=== PATIENT | female | born 1990 | race Caucasian/White ===

== ENCOUNTER → 2018-04-09 | Outpatient (CLI) | payer OTHER ==
--- NOTE | 2018-04-09 14:00 | WOMENS IMAGING REPORT ---
EXAM DESCRIPTION: TRANSVAGINAL ULTRASOUND COMPLETED DATE/TIME: 04/09/2018 12:58 pm REASON FOR STUDY: PELVIC PAIN R10.2 PELVIC AND PERINEAL PAIN LMP 04/02/2018 COMPARISON: None. TECHNIQUE: Dynamic and static grayscale images acquired of the pelvis via transvaginal approach and recorded on PACS. Additional selected color Doppler and spectral images recorded. LIMITATIONS: None. FINDINGS: UTERUS: Contour normal. No mass. ENDOMETRIAL STRIPE: No focal or generalized thickening. No masses. CERVIX: No nabothian cysts. RIGHT OVARY AND DOPPLER: Normal size. No worrisome masses. Normal arterial vascular flow without evid ence for torsion. LEFT OVARY AND DOPPLER: Normal size. No worrisome masses. Normal arterial vascular flow without evide nce for torsion. FREE FLUID: There is small amount of free fluid in the posterior cul-de-sac. OTHER: No other significant finding. MEASUREMENTS: UTERUS: 7.7 x 2.2 x 3.2 cm. ENDOMETRIAL STRIPE: 3.4 mm. RIGHT OVARY: 2.2 x 1.6 x 2 cm. LEFT OVARY: 2.6 x 1.4 x 2.1 cm. IMPRESSION: NORMAL TRANSVAGINAL PELVIC ULTRASOUND. TECHNICAL DOCUMENTATION: JOB ID: [id number] [employer]- All Rights Reserved Rev-11/09 Reading location - IP/workstation name: [email or web address]
== END ==
LOC: WI 11:02
PROVIDERS: ATTEND Nurse Practitioner Family
DX: R10.2 Pelvic and perineal pain (principal)
CPT/HCPCS: 76830

== ENCOUNTER 2018-06-06 06:56 | Day surgery (SDC) | payer OTHER ==
[2018-06-04 12:30] LABS: HEMOGLOBIN 13.3 g/dL (12.0-15.5); MEAN CORPUSCULAR HEMOGLOBIN 29.1 pg (27.0-33.4); MEAN CORPUSCULAR VOLUME 86 fl (80-97); PLATELET COUNT 244 10^3/uL (150-450); RED BLOOD COUNT 4.56 10^6/uL (3.72-5.28); RED CELL DISTRIBUTION WIDTH 13.1 % (11.5-14.0); WHITE BLOOD COUNT 5.1 10^3/uL (4.0-10.5)
[2018-06-04 12:56] LABS: APPEARANCE,URINE CLEAR; BILIRUBIN,URINE NEGATIVE (NEGATIVE); COLOR,URINE STRAW; GLUCOSE, URINE NEGATIVE (NEGATIVE); KETONES,URINE NEGATIVE (NEGATIVE); LEUKOCYTE ESTERASE,URINE NEGATIVE (NEGATIVE); NITRITE,URINE NEGATIVE (NEGATIVE); PROTEIN,URINE NEGATIVE (NEGATIVE); URINE SPECIFIC GRAVITY 1.004; UROBILINOGEN,URINE NEGATIVE mg/dL (<2.0)
[~2018-06-06 06:56] MED LIST: BUPIVACAINE HCL 0.5 % INJ/PF 30 ML SDV ONE; FENTANYL CITRATE INJ/PF 100 MCG/2 ML AMPUL ONE; LACTATED RINGERS 1000 ML IV PRN; LIDOCAINE 0.5% INJ-PF (5 MG/ML) 50 ML SDV SUBCUT PRN; MIDAZOLAM 2 MG/2 ML INJ ONE; PROPOFOL INJ 200 MG/20 ML VIAL IV ONE
[2018-06-06] MEDS ORDERED: CEFAZOLIN INJ 1 GM VIAL ONE (08:45)
[2018-06-06] MEDS ORDERED: FENTANYL CITRATE INJ/PF 100 MCG/2 ML AMPUL IV PRN ×3 (09:10)
[2018-06-06] MEDS ORDERED: DIPHENHYDRAMINE HCL 50 MG/ML VIAL IV PRN (09:10)
[2018-06-06] MEDS ORDERED: MEPERIDINE HCL/PF INJ 25 MG/1 ML DISP.SYRIN IV PRN (09:10)
[2018-06-06] MEDS ORDERED: PROMETHAZINE HCL INJ 25 MG/1 ML VIAL IV PRN (09:10)
[2018-06-06] MEDS ORDERED: ACETAMINOPHEN 1,000 MG/100 ML RTUPB IV ONE (09:49)
[2018-06-06] MEDS ORDERED: IBUPROFEN 800 MG TABLET PO PRN (09:59)
[2018-06-06] MEDS ORDERED: MORPHINE SULFATE 10 MG/ML INJ IM PRN (10:02)
[2018-06-06] MEDS ORDERED: OXYCODONE-ACETAMINOPHEN 5-325 MG TABLET PO PRN ×2 (10:02→10:03)
[2018-06-06] MEDS ORDERED: OXYCODONE-ACETAMINOPHEN 5-325 MG TABLET ONE (10:19)
[2018-06-06] MEDS ORDERED: SUCCINYLCHOLINE CHLORIDE INJ 200 MG/10 ML VIAL ONE (14:01)
[2018-06-06] MEDS ORDERED: KETOROLAC TROMETHAMINE 60 MG/2 ML SDV ONE (14:01)
[2018-06-06] MEDS ORDERED: DEXAMETHASONE SOD PHOSPHATE INJ 4 MG/1 ML VIAL ONE (14:01)
[2018-06-06] MEDS ORDERED: ONDANSETRON HCL INJ/PF 4 MG/2 ML SDV ONE (14:01)
[2018-06-06] MEDS ORDERED: LIDOCAINE 2% INJ-PF (20 MG/ML) 2 ML AMPUL ONE (14:01)
[2018-06-06 15:49] VITALS: BP 109/63
--- NOTE | 2018-07-17 23:12 | OPERATIVE REPORT E ---
Operative Report NAME: LILIANA KHAN : 1990 AGE: 27Y DATE OF SURGERY: 06/06/2018 ROOM: PREOPERATIVE DIAGNOSES: 1. CHRONIC PELVIC PAIN. 2. ABNORMAL UTERINE BLEEDING. POSTOPERATIVE DIAGNOSES: 1. CHRONIC PELVIC PAIN. 2. ABNORMAL UTERINE BLEEDING. 3. CERVICAL STENOSIS. SURGEON: JOSIAS HINES M.D. ANESTHESIA PROVIDERS: Lan Masters M.D. and Joyce Freed CRNA. ANESTHESIA: General. FINDINGS: Uterus sounded to approximately 8 cm. Normal endometrial lining. No polyps noted. With laparoscopy no lesions were noted, no signs of adhesions or endometriosis noted. Appendix was normal. Liver and gallbladder were also noted to be normal. COMPLICATIONS: None. ESTIMATED BLOOD LOSS: 20 mL. SPECIMENS REMOVED: Endometrial curettings. PROCEDURE: Diagnostic hysteroscopy with dilation and curettage and the diagnostic laparoscopy. PROCEDURE IN DETAIL: The patient was taken to the operating room, prepared and draped in the normal sterile fashion in the dorsal lithotomy position under the sterile conditions an in and out cath was performed of approximately 20 mL of clear urine. A sterile speculum was placed into the vagina. The cervix was prepped with Betadine and grasped on the anterior aspect with a single tooth tenaculum. The uterine sound was then introduced and it was measured to approximately 8 cm. The cervix was then dilated to accommodate a 5 mm hysteroscope which was then inserted with the above findings noted. The hysteroscope was then removed and a gentle scraping was done with a Kevorkian curette for sampling. The hysteroscope was reintroduced and again no pathologic findings noted. This portion of the case was then concluded. Gloves were changed and attention was turned to the upper portion of the case were an umbilical skin incision was made to accommodate a 5 mm trocar. A Veress needle was introduced into the abdomen and peritoneal cavity. Placement was confirmed with free low sterile water into the peritoneum, into the needle. The abdomen was then inflated with approximately 2 liters of CO2 gas and an introductory pressure was less than 4 mmHg. Then approximately 2 liters of CO2 gas was used to inflate the abdomen and the Veress needle was then removed and the 5 mm trocar was placed without difficulty. The camera was introduced. The patient was placed in a steep Trendelenburg. Under direct visualization another 5 mm trocar was placed in the left lower quadrant. The bowel was swept away with a blunt probe through this port and the abdomen was carefully inspected. There was no evidence of peritoneal adhesions and there was no evidence of endometriosis noted. The fallopian tubes were both followed the fimbriated end and found to be normal. The appendix was also located and found to be normal in appearance. The upper abdomen was inspected and again found to be normal. This portion of the case was then concluded. The lower trocar was removed under direct visualization with hemostasis noted. The camera was then removed and the abdomen deflated through the umbilical trocar and this was removed as well. The incisions were then both sewn at the skin with 4-0 Vicryl. The patient tolerated the procedure well. Sponge, lap, and needle counts were correct x2. The patient was taken to recovery in stable condition. DICTATING PHYSICIAN: JOSIAS HINES M.D. [id number] PHY#: [id number] ID: [id number] JOB#: [id number] ACCT: [id number] cc:JOSIAS HINES M.D. >
== END 2018-06-06 11:20 | disposition home or self-care (01) ==
LOC: OROUT 06:56
PROVIDERS: ATTEND Obstetrics & Gynecology
DX: G89.29 Other chronic pain (principal); R10.2 Pelvic and perineal pain; N88.2 Stricture and stenosis of cervix uteri; N93.9 Abnormal uterine and vaginal bleeding, unspecified; Z79.899 Other long term (current) drug therapy; Z88.5 Allergy status to narcotic agent
CPT/HCPCS: 36415; 85027; 81005; 81025; 88162; 88305 ×2; 49320; 58558; J2250; J3490 ×2; J0690; J1100; J1885; J3010; J0330; J2405; J2704; J0131; 840

== ENCOUNTER 2019-01-09 19:43 | Emergency (ER) | payer OTHER ==
[2019-01-09 20:06] VITALS: BP 118/79
--- NOTE | 2019-01-10 08:37 | EKG REPORT ---
SEVERITY:- NORMAL ECG - SINUS RHYTHM : Confirmed by: Jaciel Christianson MD 10-Jan-2019 08:36:01
== END 2019-01-10 00:15 | disposition left against medical advice (07) ==
LOC: ER 19:43
DX: Z53.21 Procedure and treatment not carried out due to patient leaving prior to being seen by health care provider (principal); R07.9 Chest pain, unspecified

== ENCOUNTER 2019-08-16 14:33 | Emergency (ER) | payer OTHER ==
[2019-08-16] MEDS ORDERED: MORPHINE SULFATE 10 MG/ML INJ IV ONE ×2 (14:48→17:43)
[2019-08-16] MEDS ORDERED: NORMAL SALINE 1000 ML 1,000 ML IV ONE ×2 (14:48→17:44)
[2019-08-16] MEDS ORDERED: METOCLOPRAMIDE HCL INJ/PF 10 MG/2 ML SDV IV ONE (14:49)
--- NOTE | 2019-08-16 14:50 | ER Document Report ---
ED Medical Screen (RME) - General Chief Complaint: Blurred Vision Stated Complaint: NAUSEA/VOMITING/HEADACHE/BLURRED VISION Time Seen by Provider: 08/16/19 14:45 Primary Care Provider: MARLENI LR FNP-C [Primary Care Provider] - Follow up as needed TRAVEL OUTSIDE OF THE [place] IN LAST 30 DAYS: No - HPI Notes: 08/16/19 14:49 Patient is a 28-year-old female with history of polyneuropathy who just started receiving infusions of IVIG medication over the past several days presents complaining of nausea and vomiting with a moderate to severe headache and stiff neck. She has not noticed any fever cough or cold. No chest pain or shortness of breath. I have treated and performed a rapid initial assessment of this patient. A comprehensive ED assessment and evaluation of the patient, analysis of test results and completion of medical decision making process will be conducted by additional ED providers. PHYSICAL EXAMINATION: GENERAL: No acute respiratory distress. A&Ox4. Answers questions appropriately. Patient does appear nauseated Lungs: Grossly CTAB Neuro: Cranial nerves grossly intact. - Related Data Allergies/Adverse Reactions: acetaminophen [From Vicodin] Allergy (Verified 08/16/19 14:46) hydrocodone [From Vicodin] Allergy (Verified 08/16/19 14:46) VOMITING BLOOD Past Medical History - Past Medical History Cardiac Medical History: Denies: Hx Coronary Artery Disease, Hx Heart Attack, Hx Hypertension Pulmonary Medical History: Denies: Hx Asthma, Hx Bronchitis, Hx COPD, Hx Pneumonia Neurological Medical History: Denies: Hx Cerebrovascular Accident, Hx Seizures Musculoskeltal Medical History: Denies Hx Arthritis - Immunizations Hx Diphtheria, Pertussis, Tetanus Vaccination: Yes Physical Exam - Vital signs Vitals: Temp Pulse Resp BP Pulse Ox 98.5 F 83 16 133/71 H 100 08/16/19 14:38 08/16/19 14:38 08/16/19 14:38 08/16/19 14:38 08/16/19 14:38 Course - Vital Signs Vital signs: Temp Pulse Resp BP Pulse Ox 98.5 F 83 16 133/71 H 100 08/16/19 14:38 08/16/19 14:38 08/16/19 14:38 08/16/19 14:38 08/16/19 14:38 Doctor's Discharge - Discharge Referrals: ALWES,MARLENI, INDUSTRIAL ENGINEERING PROFESSOR-C [Primary Care Provider] - Follow up as needed
[2019-08-16 16:00] LABS: APPEARANCE,URINE SLIGHTLY-CLOUDY; BILIRUBIN,URINE NEGATIVE (NEGATIVE); COLOR,URINE YELLOW; GLUCOSE, URINE NEGATIVE (NEGATIVE); KETONES,URINE NEGATIVE (NEGATIVE); PROTEIN,URINE NEGATIVE (NEGATIVE); URINE SPECIFIC GRAVITY 1.012; UROBILINOGEN,URINE NEGATIVE mg/dL (<2.0)
[2019-08-16 16:24] LABS: ABSOLUTE BASOPHILS # (AUTO) 0.1 10^3/uL (0.0-0.2); ABSOLUTE LYMPHOCYTES (AUTO) 1.5 10^3/uL (0.5-4.7); ABSOLUTE MONOCYTES (AUTO) 0.4 10^3/uL (0.1-1.4); ABSOLUTE NEUT (AUTO) 8.7 10^3/uL (1.7-8.2); BASOPHILS % (AUTO) 0.8 % (0-2); EOSINOPHILS % (AUTO) 0.2 % (0-6); HEMOGLOBIN 12.2 g/dL (12.0-15.5); LYMPHOCYTES % (AUTO) 13.7 % (13-45); MEAN CORPUSCULAR HEMOGLOBIN 29.2 pg (27.0-33.4); MEAN CORPUSCULAR VOLUME 86 fl (80-97); MONOCYTES % (AUTO) 4.1 % (3-13); PLATELET COUNT 212 10^3/uL (150-450); RED CELL DISTRIBUTION WIDTH 13.7 % (11.5-14.0); SEGMENTED NEUTROPHILS % (AUTO) 81.2 % (42-78); TOTAL CELLS COUNTED % (AUTO) 100 %; WHITE BLOOD COUNT 10.7 10^3/uL (4.0-10.5)
[2019-08-16 16:29] LABS: ALKALINE PHOSPHATASE 49 U/L (38-126); ANION GAP 13 (5-19); ASPARTATE AMINO TRANSFERASE 24 U/L (14-36); BILIRUBIN,DIRECT 0.2 mg/dL (0.0-0.4); BILIRUBIN,TOTAL 0.8 mg/dL (0.2-1.3); BLOOD UREA NITROGEN 11 mg/dL (7-20); CALCIUM 9.3 mg/dL (8.4-10.2); CARBON DIOXIDE 20 mmol/L (22-30); CHLORIDE 103 mmol/L (98-107); GLUCOSE 96 mg/dL (75-110); POTASSIUM 3.9 mmol/L (3.6-5.0); TOTAL PROTEIN 8.1 g/dL (6.3-8.2)
--- NOTE | 2019-08-16 16:47 | ER Document Report ---
ED General - General Chief Complaint: Neck Pain < 24hrs old Stated Complaint: NAUSEA/VOMITING/HEADACHE/BLURRED VISION Time Seen by Provider: 08/16/19 14:45 Primary Care Provider: CAT CRUZ MD [Primary Care Provider] - Follow up in 3-5 days TRAVEL OUTSIDE OF THE [place] IN LAST 30 DAYS: No - HPI Notes: 28-year-old female to the emergency department with with complaints of sudden onset of severe posterior headache, neck stiffness, nausea and vomiting that awoke her from sleep early this morning. She states that she is currently getting IVIG infusions for her chronic polyneuropathy. She states her neurologist, Dr. Eagle, from [facility] had ordered the IVIG for her. She has gotten 2 infusions. Her first infusion was on August 14 and her second was on August 15. She states on her first infusion day that she had nausea and vomiting. She states that on her second infusion day she felt pretty good. However when she woke up this morning and had significant headache and neck pain she tried to take care of her at home but just got worse throughout the day. She did not have any fevers. She has not had a rash. She has not had any belly pain, chest pain, shortness of breath, back pain. The IVIG is Gammagard. Gammagard has a known side effect profile for nausea, vomiting, headache, chest pain, fatigue, dizziness as well as aseptic meningitis. When her infusion nurse came to her house to give her infusion today, they asked her to come here for further evaluation. - Related Data Allergies/Adverse Reactions: acetaminophen [From Vicodin] Allergy (Verified 08/16/19 14:46) hydrocodone [From Vicodin] Allergy (Verified 08/16/19 14:46) VOMITING BLOOD Home Medications: control. multivitamin. gammagard. zofran Past Medical History - General Information source: Patient, Relative - - Social History Smoking Status: Never Smoker Chew tobacco use (# tins/day): No Frequency of alcohol use: None Drug Abuse: None Lives with: Spouse/Significant other Family History: Reviewed & Not Pertinent Patient has suicidal ideation: No Patient has homicidal ideation: No - Past Medical History Cardiac Medical History: Denies: Hx Coronary Artery Disease, Hx Heart Attack, Hx Hypertension Pulmonary Medical History: Denies: Hx Asthma, Hx Bronchitis, Hx COPD, Hx Pneumonia Neurological Medical History: Denies: Hx Cerebrovascular Accident, Hx Seizures Musculoskeletal Medical History: Denies Hx Arthritis - Immunizations Hx Diphtheria, Pertussis, Tetanus Vaccination: Yes Review of Systems - Review of Systems Constitutional: denies: Chills, Fever EENT: Other - Photophobia Cardiovascular: denies: Chest pain, Palpitations, Dyspnea, Syncope, Dizziness, Lightheaded Respiratory: denies: Cough, Short of breath Gastrointestinal: Nausea, Vomiting. denies: Abdominal pain, Diarrhea Genitourinary: No symptoms reported Musculoskeletal: See HPI, Neck pain Neurological/Psychological: Headaches -: Yes All other systems reviewed and negative Physical Exam - Vital signs Vitals: Temp Pulse Resp BP Pulse Ox 98.5 F 83 16 133/71 H 100 08/16/19 14:38 08/16/19 14:38 08/16/19 14:38 08/16/19 14:38 08/16/19 14:38 Interpretation: Normal - General In distress: Moderate Notes: Patient is moderate to severe pain distress. She has a sweatshirt over her eyes and all the lights are dim. She has her eyes closed most of the time while were speaking. - HEENT Head: Normocephalic, Atraumatic Eyes: Normal Pupils: PERRL Ears: Normal External canal: Normal Tympanic membrane: Normal Sinus: Normal Nasal: Normal Mouth/Lips: Normal Mucous membranes: Normal Pharynx: Normal. No: Uvular edema, Potential airway comprom. Neck: Meningismus Notes: Patient has tenderness to palpation over the posterior neck both to the midline and to the musculature. She has a lot of pain with flexion of the neck and cannot put her chin to her chest. She also has tenderness to palpation over the back of her head with no step-off or crepitus - Respiratory Respiratory status: No respiratory distress Chest status: Nontender Breath sounds: Normal. No: Rales, Rhonchi, Wheezing Chest palpation: Normal - Cardiovascular Rhythm: Regular Heart sounds: Normal auscultation Murmur: No - Abdominal Inspection: Normal Distension: No distension Bowel sounds: Normal Tenderness: Nontender. No: Tender, McBurney's point, Moreno's sign, Guarding, Rebound Organomegaly: No organomegaly - Back Back: Normal, Nontender - Extremities General upper extremity: Normal inspection, Nontender, Normal color, Normal ROM, Normal temperature General lower extremity: Normal inspection, Nontender, Normal color, Normal ROM, Normal temperature, Normal weight bearing - Neurological Neuro grossly intact: Yes Cognition: Normal Orientation: AAOx4 [place] Coma Scale Eye Opening: Spontaneous [place] Coma Scale Verbal: Oriented [place] Coma Scale Motor: Obeys Commands Shahida Coma Scale Total: 15 Speech: Normal Cranial nerves: Normal. No: Facial palsy, Forehead sparing, Gaze palsy, Sensory deficit, Tongue deviation Cerebellar coordination: Normal. No: Gait ataxia Motor strength normal: LUE, RUE, LLE, RLE Additional motor exam normals: Equal beading installer. No: Pronator drift Sensory: Normal - Psychological Associated symptoms: Normal affect, Normal mood - Skin Skin Temperature: Warm Skin Moisture: Dry Skin Color: Normal Course - Re-evaluation Re-evalutation: I consulted my ER attending, Dr. Turner about this patient nearly immediately after I saw her. We discussed her lab results and her concerning exam findings for nuchal rigidity. We both agree that this is likely a aseptic meningitis from her IVIG therapy particularly since Gammagard does have a side effect profile for aseptic meningitis. We will obtain a head CT and then if the head CT is normal we will obtain a lumbar puncture. Noted head CT which is negative for any acute findings. I discussed further with Dr. Turner and we will set up for the lumbar puncture. I have discussed in detail the risks and benefits of the lumbar puncture. I explained to patient that we think that she likely has an aseptic meningitis from her IVIG therapy but in order to confirm that and rule out other possible meningitis causes such as bacterial that a lumbar puncture would need to be performed. I went over the risks to include headache after procedure, pain from procedure, incomplete and unsuccessful procedure, numbness and tingling into the legs. Dr. Turner also went over these risks with her prior to procedure. Dr. Turner and I performed lumbar puncture together. I had an excess successful attempt and then Dr. Turner was able to obtain CSF specimens. Opening pressure was 28.5. 4 tubes of CSF were obtained and the fluid was clear. It did not appear to be particularly traumatic. Patient tolerated the procedure fair but did have pain. Noted CSF results. Dr. Turner had gone off shift but I reviewed them with Dr. Cleary, my current ER attending. He agrees that these are pretty consistent with an aseptic meningitis. The white blood cell count is a little elevated but it is notably decreased as the tube collection decreases -to clarify further, Tube 1 has more WBC than Tube 4. Glucose is 45 and protein is within normal limits. This is not likely to be a bacterial meningitis and more consistent with an aseptic meningitis. Dr. Cleary agrees with that assessment. We will have the patient hold her IVIG therapy for the next 2 days which she has been scheduled for until she speaks with Dr. Eagle. She is actually improved of her headache and neck pain since the lumbar puncture. She has had steroids, Valium, several doses of pain medicine to help control her but she states that she finally feels better. She has not had any more nausea or vomiting since the lumbar puncture. She also has been tolerating popsicles here in the emergency department. I will discharge her home with pain medicines, steroids, muscle relaxants. She is to return immediately if her headache gets worse, she has a fever, or rash, passing out, chest pain, worsening symptoms at all. We also made a plan that I would call her for well check tomorrow. She and her agree with the plan. - Vital Signs Vital signs: Temp Pulse Resp BP Pulse Ox 98.5 F 63 15 110/60 100 08/17/19 00:14 08/17/19 00:14 08/17/19 00:14 08/17/19 00:14 08/17/19 00:14 - Laboratory Result Diagrams: 08/16/19 15:51 08/16/19 15:51 Laboratory results interpreted by me: 08/16/19 08/16/19 08/16/19 14:54 15:51 15:51 WBC 10.7 H Absolute Neuts (auto) 8.7 H Seg Neutrophils % 81.2 H Sodium 135.6 L Carbon Dioxide 20 L Urine Blood MODERATE H CSF WBC 08/16/19 08/16/19 21:00 21:00 WBC Absolute Neuts (auto) Seg Neutrophils % Sodium Carbon Dioxide Urine Blood CSF WBC 916 H 292 H - Diagnostic Test Radiology reviewed: Image reviewed, Reports reviewed Procedures - Lumbar Puncture Lumbar puncture Time completed: 21:00 Consent obtained: Yes Lumbar puncture pre-procedure: Sterile PPE donned, Betadine prep applied, Sterile drapes applied Patient position: Sitting Lumbar puncture location: L4 Anesthetic type: 2% Lidocaine mL's of anesthetic: 10 - 5 ml of 1% lidocaine initially and then 5 ml of 2% subsequently Amount/type of drainage: clear CSF Number of attempts: 3 - FIDEL Alejandra attempted once and Dr. Turner attempted twice after Complications: No Notes: Patient tolerated the procedure fairly, but did have pain. After 3 attempts, CSF was obtained. Opening pressure of 28.5. 4 tubes of colorless CSF were obtained. PAtient was instructed to lay flat for 30 minutes after the procedure. Discharge - Discharge Clinical Impression: Aseptic meningitis due to drug, Neck pain Headache Qualifiers: Headache type: unspecified Headache chronicity pattern: acute headache Intractability: not intractable Qualified Code(s): R51 - Headache Condition: Stable Disposition: HOME, SELF-CARE Additional Instructions: You have been diagnosed with aseptic meningitis presumably from your IVIG therapy. Follow-up with Dr. Russo without fail on Sunday. Do not have IVIG therapy tomorrow or the next day. Return if any worsening symptoms such as worsening headache, fevers, intractable vomiting, passing out, chest pain, any other concerning symptoms. FIDEL Alejandra will call and check on you tomorrow at approximately 1 PM. Take medicines as prescribed. Push fluids. Take it very easy. Follow-up with your primary care on Sunday or Sunday. Prescriptions: Ondansetron [Zofran Odt 4 mg Tablet] 1 - 2 tab PO Q4HP PRN #10 tab.rapdis PRN Reason: Naproxen [Naprosyn] 500 mg PO BID #20 tablet Oxycodone HCl/Acetaminophen [Percocet 5-325 mg Tablet] 1 tab PO Q4H PRN #15 tab PRN Reason: Methocarbamol [Robaxin 500 mg Tablet] 500 mg PO QID #20 tablet Referrals: CAT CRUZ MD [Primary Care Provider] - Follow up in 3-5 days
[2019-08-16] MEDS ORDERED: DIAZEPAM INJ 10 MG/2 ML DISP.SYRIN IV ONE (18:49)
--- NOTE | 2019-08-16 19:26 | RADIOLOGY REPORT (SQ) ---
EXAM DESCRIPTION: CT HEAD WITHOUT COMPLETED DATE/TIME: 08/16/2019 6:49 pm REASON FOR STUDY: headache, neck pain COMPARISON: None. TECHNIQUE: Axial images acquired through the brain without intravenous contrast. Images reviewed wi th bone, brain and subdural windows. Additional sagittal and coronal reconstructions were generated. Images stored on PACS. All CT scanners at this facility use dose modulation, iterative reconstruction, and/or weight based d osing when appropriate to reduce radiation dose to as low as reasonably achievable (ALARA). [facility]: Dose Right [facility]: CareDose [facility]: Dose Right [facility]: Teradose 4D [facility]: Smart Honk RADIATION DOSE: CT Rad equipment meets quality standard of care and radiation dose reduction techniq ues were employed. CTDIvol: 53.2 mGy. DLP: 884 mGy-cm. mGy. LIMITATIONS: None. FINDINGS: VENTRICLES: Normal size and contour. CEREBRUM: No masses. No hemorrhage. No midline shift. No evidence for acute infarction. Normal gra y/white matter differentiation. No areas of low density in the white matter. CEREBELLUM: No masses. No hemorrhage. No alteration of density. No evidence for acute infarction. EXTRAAXIAL SPACES: No fluid collections. No masses. ORBITS AND GLOBE: No intra- or extraconal masses. Normal contour of globe without masses. CALVARIUM: No fracture. PARANASAL SINUSES: Left maxillary sinus mucous retention cyst. SOFT TISSUES: No mass or hematoma. OTHER: No other significant finding. IMPRESSION: No acute intracranial findings. EVIDENCE OF ACUTE STROKE: NO. COMMENT: Quality ID # [id number]: Final reports with documentation of one or more dose reduction techniques (e.g., Automated exposure control, adjustment of the mA and/or kV according to patient size, use of iterative reconstruction technique) TECHNICAL DOCUMENTATION: JOB ID: [id number] 2010 [employer]- All Rights Reserved Reading location - IP/workstation name: [email or web address]
[2019-08-16] MEDS ORDERED: LIDOCAINE 2% INJ (20 MG/ML) 20 ML MDV ONE (20:35)
[2019-08-16] MEDS ORDERED: HYDROMORPHONE HCL INJ/PF 2 MG/ML AMPULE IV ONE (21:00)
[2019-08-16] MEDS ORDERED: ONDANSETRON HCL INJ/PF 4 MG/2 ML SDV IV ONE (21:00)
[2019-08-16 21:51] LABS: GLUCOSE,CSF 45 mg/dL (40-70); PROTEIN,CSF 59 mg/dL (12-60)
[2019-08-16] MEDS ORDERED: KETOROLAC TROMETHAMINE INJ/PF 30 MG/1 ML SDV IV ONE (22:03)
[2019-08-16] MEDS ORDERED: DEXAMETHASONE SOD PHOS INJ 10 MG/1 ML VIAL IV ONE (22:03)
[2019-08-16] MEDS ORDERED: NORMAL SALINE 500 ML IV ONE (22:04)
[2019-08-16 22:16] LABS: APPEARANCE ALL TUBES CLEAR; COLOR ALL TUBES COLORLESS; CSF TUBE NUMBER 1; RED BLOOD CELL,CSF 7 /uL (0-10); VOLUME TUBE 1 2.5 CC; VOLUME TUBE 2 3.5 CC
[2019-08-16 22:17] LABS: APPEARANCE ALL TUBES CLEAR; COLOR ALL TUBES COLORLESS; CSF TUBE NUMBER 4; VOLUME TUBE 1 2.5 CC; WHITE BLOOD CELL,CSF 916 /uL (0-5)
[2019-08-16 22:18] LABS: RED BLOOD CELL,CSF 8 /uL (0-10); VOLUME TUBE 2 3.5 CC; WHITE BLOOD CELL,CSF 292 /uL (0-5)
[2019-08-16 22:32] LABS: MONONUCLEAR CELLS CSF 4 %; POLYMORPHONUCLEAR CELLS CSF 96 %
[2019-08-16 22:34] LABS: MONONUCLEAR CELLS CSF 10 %; POLYMORPHONUCLEAR CELLS CSF 90 %
[2019-08-17 00:15] VITALS: BP 110/60
== END 2019-08-17 00:15 | disposition home or self-care (01) ==
LOC: ER 14:33
DX: G03.0 Nonpyogenic meningitis (principal); T50.905A Adverse effect of unspecified drugs, medicaments and biological substances, initial encounter; R51 Headache; R11.2 Nausea with vomiting, unspecified; M43.6 Torticollis; G62.9 Polyneuropathy, unspecified; M54.2 Cervicalgia; H53.149 Visual discomfort, unspecified; Z79.3 Long term (current) use of hormonal contraceptives; Z79.899 Other long term (current) drug therapy; Z88.8 Allergy status to other drugs, medicaments and biological substances; Z88.6 Allergy status to analgesic agent; Z88.5 Allergy status to narcotic agent
CPT/HCPCS: 96376; 99284; 96361; 96375; 96365; 36415; 87040; 87070; 87205; 83690; 85025; 89050; 82945; 84157; 81025; 80053; 81001; 70450; 62270; J3490; J3360; J1885; J2765; J2270; J1170; J2405; J7030; J7040; J1100

== ENCOUNTER 2019-08-17 22:50 | Emergency (ER) | payer OTHER ==
[2019-08-17] MEDS ORDERED: PROMETHAZINE HCL INJ 25 MG/1 ML VIAL IV ONE (23:03)
[2019-08-17] MEDS ORDERED: NORMAL SALINE 1000 ML 1,000 ML IV ONE (23:03)
--- NOTE | 2019-08-17 23:19 | ER Document Report ---
ED Medical Screen (RME) - General Chief Complaint: Abdominal Pain Stated Complaint: ABDOMINAL PAIN Time Seen by Provider: 08/17/19 22:59 Primary Care Provider: CAT CRUZ MD [Primary Care Provider] - Follow up as needed TRAVEL OUTSIDE OF THE [place] IN LAST 30 DAYS: No - HPI Notes: 08/17/19 23:32 28-year-old female to the emergency department with complaints of upper abdomin al pain that radiates through to her back and chest pain that began today. Patient has a pertinent past medical history of complex polyneuropathy and she is being followed by Dr. Russo at [place] [facility]. She just started on IVIG, Gammagard, therapy on . On Sunday morning she awoke with neck pain, headache, nausea vomiting that was severe enough to bring her to the emergency department yesterday. She had a full work-up yesterday including a lumbar puncture. The suspicion was that she had aseptic meningitis from her IVIG therapy. She was doing much better at the time of discharge and was sitting up and eating popsicles. However today she is gotten worse. She states that her headache is much better and that she actually has better movement of her neck than yesterday but the abdomen and the chest pain are new symptoms. The Gammagard does have a side effect profile of giving abdominal and chest pain but because this is a new symptom she was advised to come back to the emergency department. She denies any fevers at home today. Temperature here in the emergency department was 99. She states that she feels nauseated but she cannot vomit. I performed a brief medical screening exam on the patient determined that she will need further evaluation by main type provider. Patient has been placed directly back into bed 2. Attendings have been notified of patient. - Related Data Allergies/Adverse Reactions: acetaminophen [From Vicodin] Allergy (Verified 08/16/19 14:46) hydrocodone [From Vicodin] Allergy (Verified 08/16/19 14:46) VOMITING BLOOD Home Medications: Percocet. zofran Past Medical History - Social History Chew tobacco use (# tins/day): No Frequency of alcohol use: None Drug Abuse: None - Past Medical History Cardiac Medical History: Denies: Hx Coronary Artery Disease, Hx Heart Attack, Hx Hypertension Pulmonary Medical History: Denies: Hx Asthma, Hx Bronchitis, Hx COPD, Hx Pneumonia Neurological Medical History: Denies: Hx Cerebrovascular Accident, Hx Seizures Musculoskeltal Medical History: Denies Hx Arthritis - Immunizations Hx Diphtheria, Pertussis, Tetanus Vaccination: Yes Physical Exam - Vital signs Vitals: Temp Pulse Resp BP Pulse Ox 99.8 F 77 20 118/75 100 08/17/19 22:55 08/17/19 22:55 08/17/19 22:55 08/17/19 22:55 08/17/19 22:55 Course - Vital Signs Vital signs: Temp Pulse Resp BP Pulse Ox 99.8 F 77 20 118/75 100 08/17/19 22:55 08/17/19 22:55 08/17/19 22:55 08/17/19 22:55 08/17/19 22:55 Doctor's Discharge - Discharge Referrals: CAT CRUZ MD [Primary Care Provider] - Follow up as needed
[2019-08-18 00:07] LABS: ABSOLUTE LYMPHOCYTES (AUTO) 2.7 10^3/uL (0.5-4.7); ABSOLUTE MONOCYTES (AUTO) 0.6 10^3/uL (0.1-1.4); ABSOLUTE NEUT (AUTO) 6.1 10^3/uL (1.7-8.2); BASOPHILS % (AUTO) 0.3 % (0-2); EOSINOPHILS % (AUTO) 0.3 % (0-6); HEMATOCRIT 33.1 % (36.0-47.0); HEMOGLOBIN 11.3 g/dL (12.0-15.5); MEAN CORPUSCULAR HEMOGLOBIN 29.3 pg (27.0-33.4); MEAN CORPUSCULAR HGB CONC 34.1 g/dL (32.0-36.0); MEAN CORPUSCULAR VOLUME 86 fl (80-97); MONOCYTES % (AUTO) 6.1 % (3-13); PLATELET COUNT 199 10^3/uL (150-450); RED BLOOD COUNT 3.85 10^6/uL (3.72-5.28); SEGMENTED NEUTROPHILS % (AUTO) 64.3 % (42-78); TOTAL CELLS COUNTED % (AUTO) 100 %; WHITE BLOOD COUNT 9.4 10^3/uL (4.0-10.5)
[2019-08-18 00:24] LABS: ALBUMIN 3.6 g/dL (3.5-5.0); ALKALINE PHOSPHATASE 47 U/L (38-126); ANION GAP 9 (5-19); ASPARTATE AMINO TRANSFERASE 21 U/L (14-36); BILIRUBIN,DIRECT 0.3 mg/dL (0.0-0.4); BILIRUBIN,TOTAL 0.7 mg/dL (0.2-1.3); BLOOD UREA NITROGEN 9 mg/dL (7-20); CALCIUM 8.9 mg/dL (8.4-10.2); CARBON DIOXIDE 22 mmol/L (22-30); CHLORIDE 108 mmol/L (98-107); GLUCOSE 104 mg/dL (75-110); POTASSIUM 3.9 mmol/L (3.6-5.0); TOTAL PROTEIN 7.3 g/dL (6.3-8.2)
[2019-08-18 00:36] LABS: APPEARANCE,URINE SLIGHTLY-CLOUDY; BILIRUBIN,URINE NEGATIVE (NEGATIVE); COLOR,URINE STRAW; GLUCOSE, URINE NEGATIVE (NEGATIVE); KETONES,URINE NEGATIVE (NEGATIVE); LEUKOCYTE ESTERASE,URINE NEGATIVE (NEGATIVE); NITRITE,URINE NEGATIVE (NEGATIVE); PROTEIN,URINE NEGATIVE (NEGATIVE); URINE SPECIFIC GRAVITY 1.006; UROBILINOGEN,URINE NEGATIVE mg/dL (<2.0)
[2019-08-18] MEDS ORDERED: HYDROMORPHONE HCL INJ/PF 2 MG/ML AMPULE IV ONE (01:45)
--- NOTE | 2019-08-18 02:02 | ER Document Report ---
ED General - General TRAVEL OUTSIDE OF THE [place] IN LAST 30 DAYS: No - Related Data Home Medications: Percocet. 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 Admits nausea but denies vomiting or diarrhea. Denies fevers. Pain in her abdomen worsens with food. Patient was seen yesterday and diagnosed with aseptic meningitis, states that her headache and neck pain have actually improved significantly. After being diagnosed with aseptic meningitis she stopped taking the IVIG. Did not take her dose on Sunday. States she developed a rash while sitting in the waiting room. States the rash was on her face and her chest, erythematous, not raised, not painful, has since resolved. states the areas of rash were approximately 2 mm. (SARAH CARIAS) - Related Data Allergies/Adverse Reactions: acetaminophen [From Vicodin] Allergy (Verified 08/16/19 14:46) hydrocodone [From Vicodin] Allergy (Verified 08/16/19 14:46) VOMITING BLOOD Past Medical History - General Information source: Patient - Social History Smoking Status: Never Smoker Chew tobacco use (# tins/day): No Frequency of alcohol use: Occasional Drug Abuse: None Family History: Reviewed & Not Pertinent Patient has suicidal ideation: No Patient has homicidal ideation: No - Past Medical History Cardiac Medical History: Denies: Hx Coronary Artery Disease, Hx Heart Attack, Hx Hypertension Pulmonary Medical History: Denies: Hx Asthma, Hx Bronchitis, Hx COPD, Hx Pneumonia Neurological Medical History: Denies: Hx Cerebrovascular Accident, Hx Seizures Musculoskeletal Medical History: Denies Hx Arthritis - Immunizations Hx Diphtheria, Pertussis, Tetanus Vaccination: Yes <SARAH CARIAS - Last Filed: 08/18/19 03:31> Review of Systems - Review of Systems Constitutional: No symptoms reported EENT: No symptoms reported Cardiovascular: See HPI, Chest pain Respiratory: No symptoms reported. denies: Cough, Short of breath Gastrointestinal: Abdomen distended, Abdominal pain, Nausea. denies: Diarrhea, Vomiting Musculoskeletal: See HPI. denies: Neck pain Skin: See HPI Neurological/Psychological: See HPI. denies: Headaches -: Yes All other systems reviewed and negative <SARAH CARIAS - Last Filed: 08/18/19 03:31> Physical Exam - Vital signs Interpretation: Normal <SARAH CARIAS - Last Filed: 08/18/19 03:31> - Vital signs Vitals: Temp Pulse Resp BP Pulse Ox 99.8 F 77 20 118/75 100 08/17/19 22:55 08/17/19 22:55 08/17/19 22:55 08/17/19 22:55 08/17/19 22:55 - Notes Notes: GENERAL: Alert, interacts well. No acute distress. HEAD: Normocephalic, atraumatic EYES: Pupils equal, round and reactive to light, extraocular movements intact. ENT: Oral mucosa moist, tongue midline. NECK: Full range of motion, supple, trachea midline. LUNGS: Clear to auscultation bilaterally, no wheezes, rales or rhonchi, no respiratory distress. Lower sternal tenderness to palpation, mostly over top of the xiphoid process. HEART: Regular rate and rhythm, no murmurs, gallops, rubs. ABDOMEN: Soft, mild epigastric tenderness to palpation, mild right upper quadran t and left upper quadrant tenderness to palpation, nondistended, bowel sounds present in all 4 quadrants. EXTREMITIES: Moves all 4 extremities spontaneously, no edema, radial and dorsalis pedis pulses 2/4 bilaterally. No cyanosis. NEUROLOGICAL: Alert and oriented x3, normal speech. PSYCH: Appears mildly anxious. SKIN: Warm, Dry, normal turgor, no rashes noted. There are puncture wounds noted in the midline of her lumbar spine consistent with recent lumbar puncture, no erythema, small bruising, complaints of pain when this area is palpated. There is no abscess or fluctuance. (SARAH CARIAS) Course - Laboratory Result Diagrams: 08/17/19 23:46 08/17/19 23:46 <SARAH CARIAS - Last Filed: 02/24/20 03:31> - Laboratory Result Diagrams: 08/17/19 23:46 08/17/19 23:46 <GLORIA HAY - Last Filed: 08/18/19 05:51> - Re-evaluation Re-evalutation: 08/18/19 02:05 CBC shows white count that has normalized, mild anemia with hemoglobin 11.3, CMP unremarkable, lipase is normal, troponin is undetectable, urinalysis shows no signs of infection. EKG is nonischemic. Chest x-ray is pending, given the fact that her pain did worsen with food she will have an ultrasound to rule out cholecystitis or cholelithiasis. Upper abdominal pain and chest pain can be side effects of the Gammagard however so can a heart attack. I will attempt to consult with Dr. Eagle at [place]. 08/18/19 03:09 Chest x-ray unremarkable, right upper quadrant ultrasound is negative. I am mike iting a phone call back from the on-call neurologist at [place] to discuss her symptoms further. 08/18/19 03:28 On-call neurologist (Dr. Cabrera) agrees with work-up thus far, only concerned that he has that she did have a pulse oximetry reading of 91%, there is a slightly increased risk of pulmonary embolism with the Gammagard, he suggests that we repeat the troponin and that we obtain a CTA of the chest to rule out PE given her one episode of hypoxia. If both of these are normal then the patient may be discharged home, it is okay to stop her Gammagard until she follows up with Dr. Eagle as an outpatient. 08/18/19 03:31 Dr. Hay will foloow-up on the results of the CTA chest and the repeat troponin. If they are normal she may be discharged home. (SARAH CARIAS) 08/18/19 05:49 Patient is resting in bed show no signs of acute distress at this moment. is at her bedside and we all had discussions about the most recent pending lab and CT scan. CT scan of the chest which was an angiogram to determine if there was any evidence of pulmonary emboli and the report comes back showing no evidence of pulmonary emboli present. Also a troponin was ordered as a repeat study and it up again shows a normal value of 0.012. Without any increase from the previous test result. Patient is aware that she is to go home take her usual medicines that have been prescribed and to discontinue the gammaglobulin that seems to be the culprit and side effects of that medication. Patient knows to get in touch with her neurologist Dr. Eagle at [facility]. She plans to give him a call today. (GLORIA HAY) - Vital Signs Vital signs: Temp Pulse Resp BP Pulse Ox 98.5 F 62 16 113/81 98 08/18/19 04:45 08/18/19 04:45 08/18/19 04:45 08/18/19 04:45 08/18/19 04:45 - Laboratory Laboratory results interpreted by me: 08/17/19 08/17/19 23:46 23:46 Hgb 11.3 L Hct 33.1 L Chloride 108 H - EKG Interpretation by Me Additional EKG results interpreted by me: 08/18/19 02:05 EKG shows sinus bradycardia at a rate of 56, normal axis, normal intervals, no ST segment elevations or depressions, nonspecific T wave inversions in V3 and V4, T wave flattening noted in lead III per my interpretation. (SARAH CARIAS) Discharge <SARAH CARIAS - Last Filed: 08/18/19 03:31> <GLORIA HAY - Last Filed: 08/18/19 05:51> - Discharge Clinical Impression: Epigastric abdominal pain, Chest pain with low risk for cardiac etiology, Medication side effect Condition: Stable Disposition: HOME, SELF-CARE Additional Instructions: Today your testing did not reveal blood clot to the lungs, or heart attack, infection in your stomach or any specific source for your pain. I suspect your symptoms are probably coming from side effects to the Gammagard. I discussed your case with Dr. Campbell the neurologist on-call at [place] this evening, he states that you are okay to stop the Gammagard until you have followed up with Dr. Eagle. Please continue to use ibuprofen and acetaminophen at home in addition to the methocarbamol and Percocet that you have at home as well. Return to the emergency department for fevers, worsening pain or any new or concerning symptoms. Referrals: CAT CRUZ MD [Primary Care Provider] - Follow up as needed
--- NOTE | 2019-08-18 02:37 | RADIOLOGY REPORT (SQ) ---
EXAM DESCRIPTION: X-RAY CHEST 2 VIEWS CLINICAL HISTORY: 28 years, Female, chest pain COMPARISON: None. FINDINGS: PA and lateral chest radiographs were performed at 0224 hours on 08/18/2019. The lungs are well expanded and clear. The costophrenic sulci are sharp. The cardiac silhouette, hilar regions, trachea, soft tissues and bony structures are unremarkable aside from a mild scoliosis with the mid thoracic spine convex to the right and lower thoracic spine convex to the left.. IMPRESSION: No acute cardiopulmonary disease. Mild scoliosis.
--- NOTE | 2019-08-18 03:02 | RADIOLOGY REPORT (SQ) ---
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 Comparison: None available History: 28-year old patient with epigastric pain. Findings: The visualized portions of the hepatic parenchyma appear normal. There is no evidence to suggest intra or extrahepatic ductal dilatation. There is normal directional flow seen within the main portal vein. There is no evidence of pericholecystic fluid, gallbladder wall thickening, or cholelithiasis. The common duct measures 2-3 mm. The right kidney measures up to 10.2 cm in length. The right kidney demonstrates normal cortical echogenicity with no evidence to suggest hydronephrosis. The visualized portions of the IVC, abdominal aorta, and pancreatic head appear normal. No free intraperitoneal fluid is seen. Impression: No sonographic abnormality is seen within the right upper quadrant of the abdomen.
--- NOTE | 2019-08-18 05:02 | RADIOLOGY REPORT (SQ) ---
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 TECHNIQUE: Postcontrast CT through the chest was performed per protocol for CT angiography. 3D Multiplanar reformations were performed at the workstation. Reconstructed sagittal and coronal images were also obtained through the chest. This exam was performed according to our departmental dose-optimization program, which includes automated exposure control, adjustment of the mA and/or KV according to the patient's size and/or use of iterative reconstruction technique. COMPARISON: None available FINDINGS: The heart size is within normal limits of size. No significant mediastinal, supraclavicular, or axillary lymphadenopathy is seen. The thoracic aorta is within normal limits of size. No filling defects are seen within the pulmonary arteries to suggest a pulmonary artery embolism. The main pulmonary artery is within normal limits of size. The thyroid gland is unremarkable. The central tracheobronchial tree is patent. There is no evidence of a focal consolidative airspace opacity. There is no evidence of pleural effusions or a pneumothorax. The bones demonstrate no suspicious lytic or blastic lesion. The visualized portions of the upper abdomen appear grossly unremarkable. There is nonspecific gallbladder wall thickening present. IMPRESSION: No acute airspace opacities are seen. No filling defect is seen to suggest a pulmonary artery embolism.
[2019-08-18 06:21] VITALS: BP 117/68
--- NOTE | 2019-08-18 08:27 | EKG REPORT ---
SEVERITY:- ABNORMAL ECG - SINUS RHYTHM : Confirmed by: Katelyn Barton 18-Aug-2019 08:25:46
== END 2019-08-18 06:55 | disposition home or self-care (01) ==
LOC: ER 22:50
DX: R10.13 Epigastric pain (principal); R07.9 Chest pain, unspecified; R07.89 Other chest pain; T50.905A Adverse effect of unspecified drugs, medicaments and biological substances, initial encounter; R14.0 Abdominal distension (gaseous); R11.0 Nausea; R10.10 Upper abdominal pain, unspecified; R21 Rash and other nonspecific skin eruption; Y92.9 Unspecified place or not applicable; Z88.8 Allergy status to other drugs, medicaments and biological substances
CPT/HCPCS: 93005; 99284; 96361; 96374; 96375; 36415; 83690; 85025; 80053; 81001; 84484; 71046; 76705; 71275; 93010; J1170; J2550; J7030